=== PATIENT | female | born 1990 | race Caucasian/White ===

== ENCOUNTER → 2016-08-18 | Outpatient (CLI) | payer OTHER ==
[2016-08-18 16:00] LABS: CH 33.5; CHCM 35.6; HCT 33.2 % (34.0-46.0); HDW 2.51; HGB 11.7 gm/dL (11.4-16.0); MCH 33.3 pg (25.0-35.0); MCHC 35.2 g/dL (31.0-37.0); MCV 94.6 fL (80.0-100.0); RBC 3.51 m/uL (3.80-5.40); RDW 12.9 % (11.5-15.5); WBC 6.9 k/uL (3.8-10.6)
[2016-08-18 16:11] LABS: Glucose 87 mg/dL (74-99); Non-African American GFR(MDRD) >60 (>60 ml/min/1.73 sqM)
[2016-08-18 16:41] LABS: Hepatitis B Surface Ag Index 0.06
[2016-08-19 06:44] LABS: HIV-1/HIV-2 Ab Screen NONREAC (NON REAC)
== END | disposition home or self-care (01) ==
LOC: LABWHC1 15:45
PROVIDERS: ATTEND Obstetrics & Gynecology
DX: O26.812 Pregnancy related exhaustion and fatigue, second trimester (principal); Z3A.00 Weeks of gestation of pregnancy not specified
CPT/HCPCS: 36415; 82565; 82947; 85027; 86762; 86780; 86850; 86900; 86901; 87340; 87389

== ENCOUNTER → 2016-08-22 | Outpatient (CLI) | payer OTHER ==
--- NOTE | 2016-08-22 22:34 | US ---
EXAMINATION TYPE: US OB anatomy transabd DATE OF EXAM: 08/22/2016 4:25 PM COMPARISON: NONE HISTORY: 25-year-old female O36.62X0 Large for dates ; prior C Section delivery TECHNIQUE: Transabdominal (TA) FINDINGS: EXAM MEASUREMENTS: GESTATIONAL AGE / DATING Physician Established: (20 weeks/2 days) EDC: 01/07/2017 Dates by LMP: (20 weeks/2 days) EDC: 01/07/2017 Dates by First Scan: (today Dates by Current Scan for: (20 weeks/4 days) EDC: 01/05/2017 SURVEY IUP: Single PLACENTA: Anterior , mid placenta anechoic area is noted and may be venous coughlin = 2.2 x 1.2 x 0.6cm. Color flow was not assessed. PREVIA: No previa EMIR: 14.8 cm Normal CERVICAL LENGTH (transabdominal: norm > 3.0cm): 3.3 cm BIOMETRY PRESENTATION: Breech LIE: Transverse lie with head maternal right BPD: 4.9 cm 20 weeks / 6 days HC: 18.3 cm 20 weeks / 5 days AC: 15.5 cm 20 weeks / 5 days FL: 3.2 cm 20 weeks / 1 day ESTIMATED WEIGHT IN GRAMS: 355.8 grams ESTIMATED WEIGHT IN LBS/OZ: 0 lbs. 13 oz. WEIGHT PERCENTAGE BASED ON ESTABLISHED DATE: 55.7 % HC/AC: 1.18 Normal FL/AC: 20.88 Normal HEART RATE: 136 bpm RHYTHM: Normal ANATOMY SEEN (within normal limits): Lateral Vent (< 1 cm) 0.6 cm Cisterna Magna (< 1.1 cm) 0.5 cm Nuchal Fold (< 0.6 cm) 0.4 cm Cerebellum (varies with age) 2.12 cm Choroid Plexus (bilateral) Midline Falx Cavus Septi Pellucidi Four Chamber Heart Stomach Situs Nose / Lips Diaphragm Kidneys (bilateral) Bladder Three Vessel Cord Transverse Spine ANATOMY NOT SEEN OR SUBOPTIMALLY VISUALIZED: Outflow tracts: LVOT/RVOT Longitudinal Spine (upper thoracic spine skin line not delineated) Cord Insert Arms (bilateral radius/ulna) Legs (bilateral tib/fibs) TECHNOLOGY ANALYST NOTES: Single, live, IUP,20 weeks/4 days, EDC: 01/05/2017, HR 136bpm. IMPRESSION: 1. Single live intrauterine with estimated gestational age of 20 weeks 2 days by LMP. Curre nt ultrasound biometry is concordant (20 weeks 4 days) placing the child at the 56th percentile for w eight. 2. A 2.2 cm anechoic structure within the mid placenta probably represents a prominent venous coughlin. T his can be reassessed at follow-up as clinically indicated. 3. A few of the structures on the survey were suboptimally visualized (outflow tracts, longitud inal spine, cord insertion, bilateral radius/ulna and bilateral tibia/fibula). The patient can be patti edule for a rescan of missed anatomy in 1 to 2 weeks if desired. The remaining visualized structures appear normal.
== END | disposition home or self-care (01) ==
LOC: RADUSWWP 15:31
PROVIDERS: ATTEND Obstetrics & Gynecology
DX: O36.62X0 Maternal care for excessive fetal growth, second trimester, not applicable or unspecified (principal); Z3A.20 20 weeks gestation of pregnancy
CPT/HCPCS: 76811

== ENCOUNTER → 2016-09-14 | Outpatient (CLI) | payer OTHER ==
--- NOTE | 2016-09-14 17:25 | US ---
EXAMINATION TYPE: US OB Call Back DATE OF EXAM: 09/14/2016 5:00 PM COMPARISON: US 2016 CLINICAL HISTORY: Z36 Follow Up prev abnormal US or Re-evaluation. GESTATIONAL AGE / DATING Dates by Initial Survey Scan: (20 weeks/4 days) EDC: 01/05/2017 HEART RATE: 143 bpm RHYTHM: Normal ANATOMY SEEN (second anatomic survey look): Outflow tracts:? LVOT/RVOT Cord Insert : Longitudinal Spine: Transverse Spine: Arms (bilateral): Legs (bilateral): Second US technologist assessed RVOT with multiple images achieved. IMPRESSION: Ventricular outflow tracts are seen and appeared normal. I see no complicating process. There is norm al anatomy survey together with the previous exam of August 22, 2016
== END | disposition home or self-care (01) ==
LOC: RADUSWWP 09-07 14:07
PROVIDERS: ATTEND Obstetrics & Gynecology
DX: Z53.9 Procedure and treatment not carried out, unspecified reason (principal)

== ENCOUNTER → 2016-09-26 | Outpatient (CLI) | payer OTHER ==
[2016-09-26 17:35] LABS: CH 33.9; CHCM 36.4; HCT 31.2 % (34.0-46.0); HDW 2.88; HGB 11.3 gm/dL (11.4-16.0); MCH 33.9 pg (25.0-35.0); MCHC 36.2 g/dL (31.0-37.0); MCV 93.7 fL (80.0-100.0); Mean Platelet Volume 7.1; RBC 3.33 m/uL (3.80-5.40); RDW 12.1 % (11.5-15.5); WBC 7.3 k/uL (3.8-10.6)
== END | disposition home or self-care (01) ==
LOC: LABWHC1 16:08
PROVIDERS: ATTEND Obstetrics & Gynecology
DX: Z34.82 Encounter for supervision of other normal pregnancy, second trimester (principal); Z3A.00 Weeks of gestation of pregnancy not specified
CPT/HCPCS: 36415; 82950; 85027

== ENCOUNTER → 2016-10-06 | Outpatient (CLI) | payer OTHER | END | disposition home or self-care (01) | LOC: LABWHC1 07:55 | PROVIDERS: ATTEND Obstetrics & Gynecology | DX: O99.810 Abnormal glucose complicating pregnancy (principal); Z3A.00 Weeks of gestation of pregnancy not specified | CPT/HCPCS: 36415; 82951; 82952 ==

== ENCOUNTER → 2016-11-15 | Outpatient (CLI) | payer OTHER ==
--- NOTE | 2016-11-15 17:09 | US ---
EXAMINATION TYPE: US OB anatomy transabd DATE OF EXAM: 11/15/2016 COMPARISON: Previous study dated 08/22/2016. HISTORY: Large for dates O36.63XO LGA TECHNIQUE: Transabdominal (TA) EXAM MEASUREMENTS: GESTATIONAL AGE / DATING Physician Established: (32 weeks/3 days) EDC: 01/07/2017 Dates by LMP: (32 weeks/3 days) EDC: 01/07/2017 Dates by First Scan: (32 weeks/3 days) EDC: 01/07/2017 Dates by Current Scan for: (33 weeks/4 days) EDC: 12/30/2016 SURVEY IUP: Single PLACENTA: Anterior: 1.9cm hypoechoic area mid placenta PREVIA: No previa EMIR: 14.3 cm Normal CERVICAL LENGTH (transabdominal: norm > 3.0cm): 3.2 cm BIOMETRY PRESENTATION: Vertex BPD: 8.7 cm 35 weeks / 1 days HC: 31.1 cm 34 weeks / 6 days AC: 27.9 cm 32 weeks / 0 days FL: 6.2 cm 32 weeks / 1 days ESTIMATED WEIGHT IN GRAMS: 1999 grams ESTIMATED WEIGHT IN LBS/OZS: 4 lbs. 7 oz. WEIGHT PERCENTAGE BASED ON ESTABLISHED DATE: 43 % HC/AC: 1.11 Normal FL/AC: 22% Normal HEART RATE: 140 bpm RHYTHM: Normal ANATOMY SEEN (within normal limits): Midline Falx Four Chamber Heart Outflow tracts: LVOT/RVOT Stomach Situs Nose / Lips Diaphragm Kidneys (bilateral) Bladder Three Vessel Cord Longitudinal Spine Legs (bilateral) ANATOMY NOT SEEN: Due to advanced age, crowding * Lateral Vent (< 1 cm) cm * Cisterna Magna (< 1.1 cm) cm * Nuchal Fold (< 0.6 cm) cm * Cerebellum (varies with age) cm Choroid Plexus (bilateral) Cavus Septi Pellucidi Cord Insert Transverse Spine Arms (bilateral) Viable single IUP measuring 33 weeks 4 days with a heart rate of 140bpm and an estimated delivery tamy e of 12/30/2016. IMPRESSION: PERRY FETUS PRESENT IN A VERTEX LIE WITH A GESTATIONAL AGE OF 32 WEEKS 4 DAYS +/- 3 WEEKS. ESTIMA ZULLY DATE OF CONFINEMENT BASED ON TODAY'S EXAMINATION IS 12/30/2016. PLEASE NOTE THE LIMITED MORPHOLOGIC EXAMINATION.
== END | disposition home or self-care (01) ==
LOC: RADUSWWP 16:00
PROVIDERS: ATTEND Obstetrics & Gynecology
DX: O36.63X0 Maternal care for excessive fetal growth, third trimester, not applicable or unspecified (principal); Z3A.33 33 weeks gestation of pregnancy
CPT/HCPCS: 76811

== ENCOUNTER → 2016-12-13 | Outpatient (CLI) | payer OTHER ==
--- NOTE | 2016-12-14 07:11 | US ---
EXAMINATION TYPE: US OB anatomy transabd DATE OF EXAM: 12/13/2016 COMPARISON: US HISTORY: O36.63X0 LARGE FOR DATES gestational diabetes TECHNIQUE: TA EXAM MEASUREMENTS: GESTATIONAL AGE / DATING Physician Established: (36 weeks/3 days) EDC: 01/07/2017 Dates by LMP: (36 weeks/3 days) EDC: 01/07/2017 Dates by First Scan: (36 weeks/5 days) EDC: 01/05/2017 Dates by Current Scan for: (38 weeks/1 days) EDC: 12/26/2016 SURVEY IUP: Single PLACENTA: Anterior PREVIA: No previa EMIR: 12.9 cm Normal CERVICAL LENGTH (transabdominal: norm > 3.0cm): 4.1 cm BIOMETRY PRESENTATION: Vertex BPD: 9.5 cm 38 weeks / 6 days HC: 33.5 cm 38 weeks / 3 days AC: 33.1 cm 37 weeks / 1 days FL: 7.4 cm 38 weeks / 0 days ESTIMATED WEIGHT IN GRAMS: 3246 grams ESTIMATED WEIGHT IN LBS/OZS: 7 lbs. 2 oz. WEIGHT PERCENTAGE BASED ON ESTABLISHED DATE: 82 % HC/AC: 1.0 Normal FL/AC: 22% Normal HEART RATE: 140 bpm RHYTHM: Normal ANATOMY SEEN (within normal limits): Four Chamber Heart Outflow tracts: LVOT/RVOT Stomach Situs Nose / Lips Diaphragm Kidneys (bilateral) Bladder Three Vessel Cord Longitudinal Spine Transverse Spine Arms (bilateral) Legs (bilateral) ANATOMY NOT SEEN: * Lateral Vent (< 1 cm) cm * Cisterna Magna (< 1.1 cm) cm * Nuchal Fold (< 0.6 cm) cm * Cerebellum (varies with age) cm Choroid Plexus (bilateral) Midline Falx Cavus Septi Pellucidi Cord Insert IMPRESSION: measuring LGA, limited anatomy scan due to advanced gestational age and head low.
== END | disposition home or self-care (01) ==
LOC: RADUSWWP 16:18
PROVIDERS: ATTEND Obstetrics & Gynecology
DX: O36.63X0 Maternal care for excessive fetal growth, third trimester, not applicable or unspecified (principal); Z3A.38 38 weeks gestation of pregnancy
CPT/HCPCS: 76811

== ENCOUNTER 2017-01-01 06:05 | Inpatient (IN) | payer OTHER ==
[2016-12-27 11:40] VITALS: BMI 25.4
--- NOTE | 2016-12-31 11:54 | P.HPOB ---
History of Present Illness H&P Date: 12/31/16 Chief Complaint: Repeat section with tubal ligation This is a 26-year-old female 2 para 1 with an estimated date of confinement of 01/07/2017, estimated gestational age of 39 and one sevenths weeks, who presents for scheduled repeat section with bilateral partial salpingectomy. She admits to good movement. She has been feeling irregular contractions. She does have gestational diabetes diet controlled. She has been getting regular nonstress tests. labs: Random glucose-87 Hepatitis B surface antigen-negative Hemoglobin-11.7 Rubella-immune Blood type-A+ Antibody screen-negative Syphilis antibody-negative HIV-nonreactive Obstetrical ultrasound-normal anatomy One hour Glucola-154 Three-hour Glucola-unable to complete Group B streptococcus-negative Obstetrical history: . History of 1 delivery due to congenital hip dysplasia. She did have gestational diabetes with that . Gynecologic history: She does have a history of chlamydia treated in the past. Social history: She is and works in [employer] sales. Review of Systems Constitutional: Denies chills, Denies fever Eyes: denies blurred vision, denies pain Ears, nose, mouth and throat: Denies headache, Denies sore throat Cardiovascular: Denies chest pain, Denies shortness of breath Respiratory: Denies cough Gastrointestinal: Denies abdominal pain, Denies diarrhea, Denies nausea, Denies vomiting Genitourinary: Reports pelvic pain, Reports Musculoskeletal: Reports low back pain Integumentary: Denies pruritus, Denies rash Neurological: Denies numbness, Denies weakness Psychiatric: Denies anxiety, Denies depression Past Medical History Additional Past Medical History / Comment(s): HIP DYSPLASIA History of Any Multi-Drug Resistant Organisms: None Reported Past Surgical History: Section, Orthopedic Surgery (Hip surgery, multiple) Additional Past Surgical History / Comment(s): Laparoscopy with ovarian cystectomy, myringotomy with tube placement Past Anesthesia/Blood Transfusion Reactions: No Reported Reaction Past Psychological History: No Psychological Hx Reported Smoking Status: Never smoker Past Alcohol Use History: None Reported Past Drug Use History: None Reported - Past Family History Mother Family Medical History: Cancer (Breast), Hypertension Medications and Allergies Home Medications Medication Instructions Recorded Confirmed Type Pnv,Calcium 72/Iron/Folic Acid 1 each PO DAILY 07/01/14 12/27/16 History [ Vitamin Plus Low Iron] Allergies Allergy/AdvReac Type Severity Reaction Status Date / Time No Known Allergies Allergy Verified 12/27/16 11:37 Exam Osteopathic Statement: *. No significant issues noted on an osteopathic structural exam other than those noted in the History and Physical/Consult. HEENT: Within normal limits Heart: Regular rate and rhythm Lungs: Clear to auscultation bilaterally Abdomen: Cervix: 1 cm/60%/-2 station heart tones: 140s Extremities: Negative Homans Assessment and Plan (1) 39 weeks gestation of Status: Acute (2) Previous delivery affecting Status: Acute (3) Personal history of congenital hip dysplasia Status: Acute (4) Family planning Status: Acute Plan: Proceed with repeat low transverse section with bilateral partial salpingectomy. I have discussed the risks, benefits, and alternative therapies for the above- mentioned procedure and for both sedation/anesthesia as well as necessary blood products administration, if indicated, as they pertain to this patient. The patient has indicated her understanding and acceptance of the risks and procedures discussed.
[2017-01-01] MEDS: LACTATED RINGERS 1,000 ML IV SCH ×2 (06:24→11:12)
[2017-01-01] MEDS ORDERED: ceFAZolin 2 GM in SODIUM CHLORIDE 0.9% 100 ML IVPB ONE (06:28)
[2017-01-01] MEDS ORDERED: CITRIC ACID-SODIUM CITRATE 15 ML CUP PO ONE (06:28)
[2017-01-01] MEDS ORDERED: LIDOCAINE 1% 20 ML VIAL (10MG/ML) FOR IV START INTRADERMA PRN (06:28)
[2017-01-01] MEDS ORDERED: LACTATED RINGERS 1,000 ML IV ONE (06:28)
[2017-01-01 06:59] LABS: Basophils # (A) 0.1 k/uL (0-0.2); Basophils % (A) 1 %; CH 30.6; CHCM 34.6; Eosinophils # (A) 0.1 k/uL (0-0.7); Eosinophils % (A) 1 %; HCT 31.9 % (34.0-46.0); HDW 3.13; HGB 11.1 gm/dL (11.4-16.0); Luc # (Auto) 0.16; Luc % (Auto) 2; Lymphocytes # (A) 1.6 k/uL (1.0-4.8); Lymphocytes % (A) 23 %; MCH 30.8 pg (25.0-35.0); MCHC 34.7 g/dL (31.0-37.0); MCV 88.7 fL (80.0-100.0); Mean Platelet Volume 7.7; Monocytes # (A) 0.5 k/uL (0-1.0); Monocytes % (A) 6 %; Neutrophils # (A) 4.9 k/uL (1.3-7.7); Neutrophils % (A) 67 %; RDW 12.6 % (11.5-15.5); WBC 7.3 k/uL (3.8-10.6); WBC (Perox) 7.62
[2017-01-01 07:24] LABS: Glucose,Whole Blood 82 mg/dL (75-99)
[2017-01-01] MEDS ORDERED: MORPHINE SULFATE (PF) 0.3 MG/0.3 ML SYR ONE (07:54)
[2017-01-01] MEDS ORDERED: KETOROLAC 30 MG/ML 1 ML VIAL ONE (07:54)
[2017-01-01] MEDS ORDERED: OXYTOCIN 10 UNIT/ML 1 ML VIAL ONE (07:54)
[2017-01-01] MEDS ORDERED: ePHEDrine SULFATE/0.9% NACL/PF 50 MG/5 ML SYRINGE IV ONE (07:54)
[2017-01-01] MEDS ORDERED: ONDANSETRON 4 MG/2 ML VIAL ONE (07:54)
[2017-01-01] MEDS ORDERED: NALBUPHINE 10 MG/ML AMPUL ONE (07:54)
--- NOTE | 2017-01-01 08:43 | P.OP ---
Date of Procedure: 01/01/17 Preoperative Diagnosis: 1. Intrauterine at 39 and one sevenths weeks. 2. History of previous section. 3. Family planning. 4. []. Postoperative Diagnosis: Same Procedure(s) Performed: Implants: Anesthesia: spinal (Duramorph) Surgeon: Karen Villafana Dental Appliance Mechanic #1: Olimpia Olguin Estimated Blood Loss (ml): 450 Pathology: other (Placenta, portions of right and left fallopian tubes) Condition: stable Disposition: floor Indications for Procedure: This is a 26-year-old female 2 para 1 at 39 and one sevenths weeks who presents for scheduled repeat section with bilateral partial salpingectomy. I have discussed the risks, benefits, and alternative therapies for the above- mentioned procedure and for both sedation/anesthesia as well as necessary blood products administration, if indicated, as they pertain to this patient. The patient has indicated her understanding and acceptance of the risks and procedures discussed. Operative Findings: A viable male is noted in the vertex presentation with scores of 9 at 1 minute and 9 at 5 minutes and weight of 7 lbs. 15 oz. Normal uterus tubes and ovaries are noted. Description of Procedure: The patient is taken to the operating room where she is placed in the dorsal supine position with leftward tilt after spinal Duramorph anesthesia is given. She is prepped and draped in the normal sterile fashion. Skin was tested and found to be adequately anesthetized. A Pfannenstiel skin incision was made with a scalpel removing the previous laparotomy scar. A second knife was used to carry the incision down to the underlying layer of fascia. The fascia was nicked in the midline with a scalpel and then extended laterally bilaterally with Ospina scissors. The anterior lip of the fascia was grasped with 2 Efe clamps and then dissected off the underlying rectus muscle in the midline with Ospina scissors. The inferior aspect of the fascial incision was grasped with 2 Efe clamps and dissected off the underlying rectus muscle and the midline with Ospina scissors. Next the peritoneum layer was tented up with 2 hemostats and then entered sharply with the scalpel. The incision is extended superiorly and inferiorly with Metzenbaum scissors. Next a DeLee retractor is placed. The vesicouterine peritoneum is entered sharply with Metzenbaum scissors and extended laterally bilaterally with Metzenbaum scissors and then the bladder flap is pushed inferiorly. The lower uterine segment is incised in transverse fashion with the scalpel and then bluntly entered with a hemostat. Clear fluid is noted. The incision was then extended laterally bilaterally with 2 fingers. Next the infant's head is delivered through the incision. Nose and mouth are bulb suctioned. The remainder of the infant is easily delivered and placed on mother's abdomen. Cord is clamped and cut. is taken to warmer by nursing staff. Uterine fundus is gently massaged and placenta is delivered manually. Uterus is exteriorized and cleared of all clots and debris. Uterine incision is closed with 0 Vicryl suture in a running locked fashion. A second layer of 0 Vicryl suture is used in a running fashion for hemostasis. Once adequate hemostasis as assured, the vesicouterine peritoneum is reapproximated with 2-0 Vicryl suture in a running fashion. Attention is then turned to the tubes. The right fallopian tube is grasped with a hemostat and the midportion of the tube. The mesosalpinx is entered with Bovie cautery. Next 0 Vicryl suture is tied 2 times around both the distal and maximal portion of the tube. Next the knuckle of tube is removed with Metzenbaum scissors. Next the ends of the tubes are cauterized. Excellent hemostasis is noted. The same procedure is carried out on the left fallopian tube. Posterior cul-de-sac is suctioned of all clots and debris. Uterus is returned to the abdomen. Incision is noted to be hemostatic. Both tubal sites are noted to be hemostatic. Peritoneal layer is closed with 0 Vicryl suture in a running fashion. Muscle layer is reapproximated with 0 Vicryl suture in interrupted fashion. Fascia layer is then closed with 0 PDS suture with 2 sutures meeting in the midline and the knots buried in either side and in the midline. The subcutaneous tissue was then closed with 2-0 Vicryl suture. Skin layer was then closed with pierce. All sponge and needle counts are correct. The patient is taken to recovery room in stable condition.
[2017-01-01] MEDS ORDERED: NALOXONE 0.4 MG/ML 1 ML VIAL IV PRN ×2 (08:46→11:01)
[2017-01-01] MEDS ORDERED: OXYTOCIN 20 UNITS/1000 ML NS 1,000 ML IV SCH (08:46)
[2017-01-01] MEDS ORDERED: METOCLOPRAMIDE 5 MG/ML 2 ML VIAL IVP PRN (08:46)
[2017-01-01] MEDS ORDERED: diphenhydrAMINE 25 MG CAP PO PRN (08:46)
[2017-01-01] MEDS ORDERED: diphenhydrAMINE 50 MG CAP PO PRN (08:46)
[2017-01-01] MEDS ORDERED: ONDANSETRON 4 MG/2 ML VIAL IVP PRN ×2 (08:46→11:01)
[2017-01-01] MEDS ORDERED: SIMETHICONE 80 MG CHEWABLE PO PRN (08:46)
[2017-01-01] MEDS ORDERED: Acetaminophen-Codeine 300-30mg TAB PO PRN (08:46)
[2017-01-01] MEDS ORDERED: ACETAMINOPHEN TAB 325 MG TAB PO PRN (08:46)
[2017-01-01] MEDS ORDERED: ZOLPIDEM 5 MG TAB PO PRN (08:46)
[2017-01-01] MEDS ORDERED: LANOLIN CREAM 5 GM TUBE TOPICAL PRN (08:46)
[2017-01-01] MEDS ORDERED: KETOROLAC 30 MG/ML 1 ML VIAL IVP PRN (08:46)
[2017-01-01] MEDS ORDERED: diphenhydrAMINE 50 MG/ML 1 ML VIAL IVP PRN ×3 (08:46→11:01)
[2017-01-01 09:00] LABS: Hemoglobin A1C 5.3 % (4.2-6.1)
[2017-01-01] MEDS: SENNOSIDES-DOCUSATE SODIUM 1 EACH TAB PO SCH ×2 (09:58→20:55)
[2017-01-01] MEDS: KETOROLAC 30 MG/ML 1 ML VIAL IVP PRN ×2 (14:59→20:56)
[2017-01-02] MEDS: KETOROLAC 30 MG/ML 1 ML VIAL IVP PRN (04:07)
[2017-01-02] MEDS: SENNOSIDES-DOCUSATE SODIUM 1 EACH TAB PO SCH ×2 (07:56→19:39)
[2017-01-02 08:29] LABS: Basophils % (A) 0 %; CH 31.2; CHCM 34.5; Eosinophils # (A) 0.1 k/uL (0-0.7); Eosinophils % (A) 2 %; HCT 25.9 % (34.0-46.0); HDW 2.89; Luc # (Auto) 0.11; Luc % (Auto) 2; Lymphocytes # (A) 0.9 k/uL (1.0-4.8); Lymphocytes % (A) 12 %; MCH 31.8 pg (25.0-35.0); MCV 91.1 fL (80.0-100.0); Mean Platelet Volume 9.1; Monocytes # (A) 0.4 k/uL (0-1.0); Monocytes % (A) 5 %; Neutrophils # (A) 5.8 k/uL (1.3-7.7); Neutrophils % (A) 79 %; RBC 2.85 m/uL (3.80-5.40); RDW 13.1 % (11.5-15.5); WBC 7.4 k/uL (3.8-10.6); WBC (Perox) 7.84
[2017-01-02 08:36] LABS: HGB 9.1 gm/dL (11.4-16.0)
--- NOTE | 2017-01-02 08:59 | P.PNOBGPC ---
Subjective - Subjective Principal diagnosis: Status post repeat section with tubal ligation POD #1 Interval history: Patient is doing well. She is ambulating. She has urinated without difficulty. She is passing flatus but no bowel movement yet. Lochia is moderate. She is bottle feeding. Patient reports: Reports appetite normal, Reports voiding normally, Reports pain well controlled, Reports ambulating normally [place]: doing well, bottle feeding Objective - Vital Signs Latest vital signs: Vital Signs Temp Pulse Resp BP Pulse Ox 01/02/17 08:00 98.4 F 73 15 90/53 99 01/02/17 06:15 16 01/02/17 04:00 97.8 F 74 16 97/56 98 01/02/17 02:00 16 01/02/17 00:00 98.1 F 69 16 86/42 98 01/01/17 22:01 16 01/01/17 20:00 98.3 F 70 16 105/72 98 01/01/17 17:14 98 01/01/17 16:01 100 01/01/17 16:00 98.2 F 60 16 99/56 01/01/17 11:01 100 01/01/17 10:46 98.1 F 61 16 114/63 01/01/17 10:16 61 16 102/59 01/01/17 09:46 61 16 109/55 01/01/17 09:31 95 16 139/81 01/01/17 09:16 71 16 114/57 100 01/01/17 09:01 72 16 105/60 100 Intake and Output 01/01/17 01/02/17 01/02/17 22:59 06:59 14:59 Output Total 900 Balance -900 Output: Urine 900 Other: # Voids 1 - Exam Extremities: Present: normal. Absent: tenderness Abdomen: Present: normal appearance, soft (Positive bowel sounds 4). Absent: distention, tenderness Incision: Present: normal, dry (Dried serosanguineous discharge is noted upon removing dressing), intact Uterus: Present: normal, firm. Absent: tenderness - Labs Labs: Abnormal Lab Results - Last 24 Hours (Table) 01/02/17 Range/Units 08:11 RBC 2.85 L (3.80-5.40) m/uL Hgb 9.1 L D (11.4-16.0) gm/dL Hct 25.9 L (34.0-46.0) % Plt Count 138 L (150-450) k/uL Lymphocytes # 0.9 L (1.0-4.8) k/uL Assessment and Plan (1) 39 weeks gestation of Current Visit: Yes Status: Acute Code(s): Z3A.39 - 39 WEEKS GESTATION OF SNOMED Code(s): 40078995 (2) Previous delivery affecting Narrative/Plan: Impression is status post repeat low transverse section with bilateral partial salpingectomy postoperative day #1. Plan is to continue with postoperative care today. Anticipate discharge home tomorrow. Current Visit: Yes Status: Acute Code(s): O34.219 - MATERNAL CARE FOR UNSP TYPE SCAR FROM PREVIOUS DEL SNOMED Code(s): 929525058 (3) Personal history of congenital hip dysplasia Current Visit: No Status: Acute Code(s): Z87.76 - PRSNL HX OF CONGEN MALFORM OF INTEGUMENT, LIMBS AND MS SYS SNOMED Code(s): 365488242 (4) Family planning Current Visit: Yes Status: Acute Code(s): Z30.09 - ENCOUNTER FOR OTH GENERAL CNSL AND ADVICE ON CONTRACEPTION SNOMED Code(s): 03999804
[2017-01-02] MEDS: Acetaminophen-Codeine 300-30mg TAB PO PRN ×2 (10:07→17:15)
[2017-01-02] MEDS: IBUPROFEN 600 MG TAB PO PRN ×2 (13:00→19:39)
[2017-01-02 15:59] VITALS: RESP 16
[2017-01-03] MEDS: IBUPROFEN 600 MG TAB PO PRN ×2 (03:19→11:09)
--- NOTE | 2017-01-03 07:45 | P.PN ---
Progress Note - Text Date: 01/02/2017 Time: 706 The patient is status post section Vital signs stable VAS: 0-10 Patient has no complaints of pain. The patient incurred some minimal itching yesterday, this itching is now subsiding. Pain meds to be managed by service.
--- NOTE | 2017-01-03 08:03 | P.DS ---
Providers Date of admission: 01/01/17 06:05 Expected date of discharge: 01/03/17 Attending physician: Karen Villafana Primary care physician: Stated None - Discharge Diagnosis(es) (1) 39 weeks gestation of Current Visit: Yes Status: Acute (2) Previous delivery affecting Current Visit: Yes Status: Acute (3) Personal history of congenital hip dysplasia Current Visit: No Status: Acute (4) Family planning Current Visit: Yes Status: Acute Hospital Course: This is a 26-year-old female 2 para 1 at 39 and one sevenths weeks who presented for scheduled repeat section with tubal ligation for family planning. She underwent repeat low transverse section with bilateral partial salpingectomy on 01/01/2017. She delivered a viable male infant in the vertex presentation with scores of 9 at 1 minute and 9 at 5 minutes and infant weight of 7 lbs. 15 oz. Her postoperative course is been uncomplicated. She is bottle feeding. Lochia is decreasing. Pain is fairly well controlled with ibuprofen and Tylenol. She is urinating without difficulty and has been passing flatus and bowel movement. Vital signs are stable. Abdomen is soft with positive bowel sounds 4. Incision is clean dry and intact. Extremities show negative Homans. Impression is status post transverse section with tubal ligation postoperative day #2. Plan is to discharge home today. Routine postoperative and instructions are given. [place] will be removed and Steri-Strips placed prior to discharge. She is advised to call the office if she has any further questions or concerns prior to her appointment time. She will be given a prescription for ibuprofen. She has a breast pump at home. She is advised to follow up in the office in approximately one week for postoperative check and in 6 weeks for a check. Procedures: Repeat low transverse section with bilateral partial salpingectomy Patient Condition at Discharge: Stable Plan - Discharge Summary New Discharge Prescriptions: New Ibuprofen [Motrin] 600 mg PO Q6HR PRN #60 tab PRN Reason: Mild Pain Or Fever >= 100.5 Continue Pnv,Calcium 72/Iron/Folic Acid [ Vitamin Plus Low Iron] 1 each PO DAILY Discharge Medication List Pnv,Calcium 72/Iron/Folic Acid [ Vitamin Plus Low Iron] 1 each PO DAILY 07/01/14 [History] Ibuprofen [Motrin] 600 mg PO Q6HR PRN #60 tab 01/03/17 [Rx] Follow up Appointment(s)/Referral(s): Karen Villafana DO [Doctor of Osteopathic Medicine] - 1 Week Activity/Diet/Wound Care/Special Instructions: Instructions 1. Do not begin any exercise program for 3 weeks. 2. Do not resume sexual relations for 3 weeks or longer if uncomfortable. 3. You may take tub baths or showers at any time. 4. You may use tampons if desired after 3 weeks. 5. Keep the area of episiotomy (stitches) clean and dry. 6. If you are not nursing, wear a good fitting, supportive bra during the day and limit fluid intake for at least 1 week to prevent breast engorgement. 7. Call the office, [phone], within the next week to make appointment for your 6 week checkup if it has not already been made. 8. Report any of the following occurrences to the doctor promptly: a. Heavy, excessive bleeding b. Chills, fever c. Burning or frequency of urination d. Pain or redness and breasts if nursing e. Increasing pain or swelling in episiotomy (stitches). In addition to the above instructions, the following additional should be followed: 1. No heavy lifting or straining (exercising) until after 6 week checkup. 2. Keep abdominal incision clean and dry: You may wear a dressing if more comfortable. 3. Make office appointment for 10 days after going home or as instructed by her doctor. Discharge Disposition: HOME SELF-CARE
[2017-01-03 08:13] VITALS: BP 110/70; PULSE 72; TEMP 97.7
[2017-01-03] MEDS ORDERED: DIPH,PERTUS(ACELL)TETVAC-LF 0.5 ML VIAL IM ONE (10:20)
== END 2017-01-03 11:25 | disposition home or self-care (01) | DRG 766 ==
LOC: 4FBP 06:05
PROVIDERS: ADMIT Obstetrics & Gynecology; ATTEND Obstetrics & Gynecology
PROC: 10D00Z1 Extraction of Products of Conception, Low, Open Approach (ICD-10-PCS; principal; 2017-01-01 08:00)
DX: O34.211 Maternal care for low transverse scar from previous cesarean delivery (principal); O24.420 Gestational diabetes mellitus in childbirth, diet controlled; O99.89 Other specified diseases and conditions complicating pregnancy, childbirth and the puerperium; Z37.0 Single live birth; Q65.89 Other specified congenital deformities of hip; Z3A.39 39 weeks gestation of pregnancy; Z80.3 Family history of malignant neoplasm of breast; Z82.49 Family history of ischemic heart disease and other diseases of the circulatory system
CPT/HCPCS: 83036; 85025; 86850; 86900; 86901; 88302; 88307; 90715; 94760

== ENCOUNTER → 2018-09-13 | Outpatient (CLI) | payer BC ==
--- NOTE | 2018-09-14 13:14 | US ---
EXAMINATION TYPE: US pelvic complete DATE OF EXAM: 09/13/2018 COMPARISON: NONE CLINICAL HISTORY: N92.1Excessive and frequent menstruation with irre. TECHNIQUE: Transabdominal (TA). Date of LMP: 09/11/18 EXAM MEASUREMENTS: Uterus: 9.0 x 4.2 x 5.7 cm Endometrial Stripe: 0.4 cm Right Ovary: 2.8 x 2.1 x 2.0 cm Left Ovary: 2.6 x 1.7 x 1.7 cm 1. Uterus: Anteverted wnl 2. Endometrium: wnl 3. Right Ovary: wnl 4. Left Ovary: wnl 5. Bilateral Adnexa: wnl 6. Posterior cul-de-sac: wnl IMPRESSION: Normal pelvic ultrasound
== END | disposition home or self-care (01) ==
LOC: RADUSWWP 16:10
PROVIDERS: ATTEND Obstetrics & Gynecology
DX: N92.1 Excessive and frequent menstruation with irregular cycle (principal)
CPT/HCPCS: 76856

== ENCOUNTER → 2019-01-03 | Outpatient (CLI) | payer OTHER ==
--- NOTE | 2019-01-03 16:23 | XR ---
EXAMINATION TYPE: XR chest 2V DATE OF EXAM: 01/03/2019 COMPARISON: NONE HISTORY: Cough and shortness of breath TECHNIQUE: Frontal and lateral views of the chest are obtained. FINDINGS: There is no focal air space opacity, pleural effusion, or pneumothorax seen. The cardiac silhouette size is within normal limits. The osseous structures are intact. There is bronchial wall thickening. A shunt is rotated. IMPRESSION: Correlate for bronchitis, reactive airways disease.
== END ==
LOC: RADXRYALE 11:21
PROVIDERS: ATTEND Physician Assistant
DX: R06.02 Shortness of breath (principal); R05 Cough
CPT/HCPCS: 71046

== ENCOUNTER → 2022-01-13 | Outpatient (CLI) | payer BC ==
--- NOTE | 2022-01-13 17:35 | CT ---
EXAMINATION TYPE: CT soft tissue neck w con DATE OF EXAM: 01/13/2022 COMPARISON: None HISTORY: enlarged lymph nodes. CT DLP: 355.90 mGycm CONTRAST: CT scan of the neck is performed with IV Contrast, patient injected with 100 mL of Isovue 300. Contrast enhanced CT of the neck was performed from the skull base through the lung apices. AIRWAY: The supraglottic, glottic, and subglottic portions of the airway appear patent and free of mass. SALIVARY GLANDS: The submandibular and parotid glands are free of mass or inflammatory process. THYROID GLAND: No nodules or masses seen. LYMPH NODES: There are lymph nodes within the bilateral internal jugular chains measuring up to 8 mm on the left and 6 mm on the right. Subcentimeter lymph nodes are also seen deep to the sternocleidoma stoid muscles on the left measuring up to 6 mm. No additional lymph nodes are seen. LUNG APICES: No nodule or mass is seen. OTHER: Vascular structures are patent. No significant degenerative change of the cervical spine. N o abscess seen. Mucous retention cyst or polyp at the base of the left maxillary sinus. IMPRESSION: 1. Subcentimeter lymph nodes seen within the neck as discussed above. No adenopathy greater than 1 cm .
== END | disposition home or self-care (01) ==
LOC: RADCTMAIN 16:44
PROVIDERS: ATTEND Family Medicine
DX: R59.0 Localized enlarged lymph nodes (principal)
CPT/HCPCS: 70491; Q9967

== ENCOUNTER → 2022-02-13 | Outpatient (CLI) | payer BC ==
--- NOTE | 2022-02-13 09:15 | US ---
EXAMINATION TYPE: US pelvic complete DATE OF EXAM: 02/13/2022 COMPARISON: 09/13/2018 CLINICAL HISTORY: R10.11 RUQ Abd pain, R31.9 Hematuria. TECHNIQUE: Transabdominal sonographic images of the pelvis were acquired. Date of LMP: 02/07/2022 EXAM MEASUREMENTS: Uterus: 9.3 x 3.2 x 4.9 cm Endometrial Stripe: 0.36 cm Right Ovary: 3.2 x 2.6 x 1.7 cm Left Ovary: 2.3 x 1.3 x 1.5 cm 1. Uterus: Anteverted wnl 2. Endometrium: wnl 3. Right Ovary: wnl 4. Left Ovary: wnl 5. Bilateral Adnexa: wnl 6. Posterior cul-de-sac: wnl IMPRESSION: 1. No evidence for acute process. 2. Endometrium within normal limits for thickness.
--- NOTE | 2022-02-13 09:17 | US ---
EXAMINATION TYPE: US abdomen complete DATE OF EXAM: 02/13/2022 COMPARISON: NONE CLINICAL HISTORY: R10.11 RUQ Abd pain, R31.9 Hematuria. TECHNIQUE: Multiple sonographic images of the abdomen are obtained. FINDINGS: EXAM MEASUREMENTS: Liver Length: 16.1 cm Gallbladder Wall: 0.14 cm CBD: 0.20 cm Spleen: 9.9 cm Right Kidney: 10.6 x 3.6 x 4.9 cm Left Kidney: 11.0 x 5.0 x 4.6 cm Pancreas: wnl Liver: wnl Gallbladder: wnl Evidence for sonographic Arellano's sign: No CBD: wnl Spleen: wnl Right Kidney: wnl Left Kidney: wnl Upper IVC: wnl Abd Aorta: wnl The liver is homogenous. The intrahepatic portion of the IVC and proximal abdominal aorta are within normal limits. There is no evidence of cholelithiasis. Common bile duct is unremarkable. The visu alized portions of the pancreas are homogenous. The spleen is unremarkable. Kidneys are symmetric a nd free of hydronephrosis. No renal lesions are seen. No renal calculi identified. IMPRESSION: No evidence for acute process. Normal sonographic appearance of the bladder. No evidence of renal rupert culi.
== END | disposition home or self-care (01) ==
LOC: RADUSWWP 06:53
PROVIDERS: ATTEND Family Medicine
DX: R10.11 Right upper quadrant pain (principal); R31.9 Hematuria, unspecified
CPT/HCPCS: 76700; 76856

== ENCOUNTER → 2022-04-21 | Outpatient (CLI) | payer BC ==
--- NOTE | 2022-04-21 15:13 | XR ---
EXAMINATION TYPE: XR thoracic spine complete DATE OF EXAM: 04/21/2022, CLINICAL HISTORY: Thoracic pain, intercostal pain. Patient states pain posterior thorax inferior to t he scapula x2-3 months. TECHNIQUE: Frontal, lateral, and swimmer's view of thoracic spine are obtained. COMPARISON: CT neck 01/13/2022 chest radiograph 01/03/2019 FINDINGS: Thoracic spine show satisfactory alignment without evidence of acute fracture or dislocatio n. Vertebral body heights and disc space heights are preserved. There is a cervical rib arising from C7 on the right. IMPRESSION: No acute fracture or dislocation is seen in the thoracic spine. 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 While this is usually asymptomatic, correlate for symptoms.
== END | disposition home or self-care (01) ==
LOC: RADXRYALE 13:49
PROVIDERS: ATTEND Physician Assistant Medical
DX: M54.6 Pain in thoracic spine (principal); R07.82 Intercostal pain
CPT/HCPCS: 72072